=== PATIENT | male | born 1970 | race Caucasian/White ===

== ENCOUNTER 2018-10-14 15:25 | Emergency (ER) | payer BC, SELFPAY ==
[2018-10-14 15:49] LABS: #Eosinphils 0.1 thou/uL (0.0-0.7); #Lymphocytes 1.5 thou/uL (1.20-3.40); #Monocytes 0.6 thou/uL (0.11-0.59); #Neutrophils 10.5 thou/uL (1.40-6.50); %Basophils 0.2 % (0.0-1.0); %Eosinophils 0.8 % (0.0-10.0); %Lymphocytes 11.8 % (21.0-51.0); %Monocytes 4.9 % (0.0-10.0); %Neutrophils 82.2 % (42.0-75.0); Hemoglobin 15.9 g/dL (14.0-18.0); Mean Corpuscular HGB CONC 35.5 g/dL (32.0-36.0); Mean Corpuscular Hemoglobin 31.9 pg (27.0-31.0); Mean Corpuscular Volume 89.9 fL (78.0-98.0); Mean Platelet Volume 8.1 fL (7.4-10.4); Platelet Count 277 thou/uL (130-400); RBC Distribution Width 11.8 % (11.5-14.5); Red Blood Cell (RBC) Count 4.99 mill/uL (4.70-6.10); White Blood Cell (WBC) Count 12.8 thou/uL (4.8-10.8)
[2018-10-14 16:08] LABS: ALT (SGPT) 41 U/L (8-55); AST (SGOT) 22 U/L (5-34); Albumin 4.9 g/dL (3.5-5.0); Alkaline Phosphatase 96 U/L (40-150); Anion Gap 15 mmol/L (10-20); BUN (Urea Nitrogen) 13 mg/dL (8.9-20.6); Bilirubin, Total 1.4 mg/dL (0.2-1.2); Calc. Creatinine Clearance 0 mL/min (70-130); Calcium 9.7 mg/dL (7.8-10.44); Carbon Dioxide 22 mmol/L (22-29); Chloride 100 mmol/L (98-107); Estimated GFR-MDRD Greater than 90; Globulin 3.4 g/dL (2.4-3.5); Glucose 122 mg/dL (70-105); Lipase 5 U/L (8-78); Potassium 4.2 mmol/L (3.5-5.1); Protein, Total 8.3 g/dL (6.0-8.3); Sodium 133 mmol/L (136-145)
[2018-10-14] MEDS ORDERED: Ondansetron PF 4 MG/2 ML Vial ONE (18:07)
== END 2018-10-14 19:05 | disposition home or self-care (01) ==
LOC: ERS 15:25
DX: E86.0 Dehydration (principal); I25.2 Old myocardial infarction; F17.210 Nicotine dependence, cigarettes, uncomplicated
CPT/HCPCS: 36415; 80053; 83690; 85025; 93005; 96361; 96374; J2405

== ENCOUNTER 2023-10-15 12:05 | Emergency (ER) | payer SELFPAY ==
[2023-10-15 14:07] LABS: SARS-CoV-2 NAA Rapid Test DETECTED (NotDetected)
== END 2023-10-15 14:30 | disposition home or self-care (01) ==
LOC: ERS 12:05
DX: U07.1 COVID-19 (principal); I25.2 Old myocardial infarction; Z87.891 Personal history of nicotine dependence
CPT/HCPCS: 71045